=== PATIENT | female | born 1955 | race African-American/Black ===

== ENCOUNTER 2017-07-15 11:25 | Emergency (ER) | payer OTHER ==
[2017-07-15] MEDS: MECLIZINE HCL 12.5 MG TABLET. PO (12:29)
[2017-07-15 12:58] LABS: ADD MAN DIFF? NO
[2017-07-15 13:03] LABS: BASO # 0.1 x10^3/uL (0.0-0.2); BASO % 1 % (0-3); EOS # 0.1 x10^3/uL (0.0-0.7); EOS % 1 % (0-3); HEMATOCRIT 44.1 % (36.0-47.0); HEMOGLOBIN 14.9 g/dL (12.0-15.5); LYMPH # 1.9 x10^3/uL (1.0-4.8); LYMPH % 21 % (24-48); MEAN CORPUSCULAR HEMOGLOBIN 30 pg (25-35); MEAN CORPUSCULAR HGB CONC 34 g/dL (31-37); MEAN CORPUSCULAR VOLUME 87 fL (79-100); MONO # 0.8 x10^3/uL (0.0-1.1); MONO % 9 % (0-9); NEUT # 6.3 x10^3uL (1.8-7.7); NEUT % 69 % (31-73); PLATELET COUNT 284 x10^3/uL (140-400); RED BLOOD COUNT 5.05 x10^6/uL (3.50-5.40); RED CELL DISTRIBUTION WIDTH 15.6 % (11.5-14.5); WHITE BLOOD COUNT 9.2 x10^3/uL (4.0-11.0)
[2017-07-15 13:15] LABS: ANION GAP 10 (6-14); BLOOD UREA NITROGEN 16 mg/dL (7-20); BUN/CREATININE RATIO 18 (6-20); CALCIUM 8.4 mg/dL (8.5-10.1); CARBON DIOXIDE 27 mmol/L (21-32); CHLORIDE 106 mmol/L (98-107); CREATININE 0.9 mg/dL (0.6-1.0); GFR 76.5; GLUCOSE 98 mg/dL (70-99); POTASSIUM 3.6 mmol/L (3.5-5.1); SODIUM 143 mmol/L (136-145)
[2017-07-15 13:21] LABS: ALBUMIN 3.2 g/dL (3.4-5.0); ALBUMIN/GLOBULIN RATIO 0.8 (1.0-1.7); ALK PHOS 91 U/L (46-116); ALT (SGPT) 21 U/L (14-59); AST (SGOT) 16 U/L (15-37); TOTAL BILIRUBIN 0.5 mg/dL (0.2-1.0); TOTAL PROTEIN 7.4 g/dL (6.4-8.2)
[2017-07-15 13:26] LABS: NT-PRO BNP 21 pg/mL (0-124)
[2017-07-15 13:32] LABS: TROPONINI < 0.017 ng/mL (0.000-0.055)
[2017-07-15 13:34] LABS: BILIRUBIN,URINE NEGATIVE (NEG); CLARITY,URINE CLEAR; COLOR,URINE YELLOW; GLUCOSE,URINE NEGATIVE (NEG); NITRITE,URINE NEGATIVE (NEG); PH,URINE 6.5; PROTEIN,URINE NEGATIVE (NEG-TRACE)
[2017-07-15 13:49] LABS: BACTERIA,URINE 0 /HPF (0-FEW); RBC,URINE TNTC /HPF (0-2); SQUAMOUS EPITHELIAL CELL,UR MOD /LPF
== END 2017-07-15 15:28 | disposition home or self-care (01) ==
LOC: ER 11:25
DX: R42 Dizziness and giddiness (principal); J45.909 Unspecified asthma, uncomplicated; K21.9 Gastro-esophageal reflux disease without esophagitis
CPT/HCPCS: 36415; 70450; 71046; 80053; 81001; 83880; 84484; 85025; 93005; 99285-25; J8597

== ENCOUNTER 2018-06-04 19:15 | Emergency (ER) | payer OTHER ==
[~2018-06-04] VITALS: Ht 165.1 cm; Wt 95.3 kg
[~2018-06-04 19:15] MED LIST: ALBU2.5V8 INH; FAMO40TA4 PO; FLUT1BLS3 IH; MECL25TA3 PO; MONT10TA9 PO; OMEP40CA5 PO
--- NOTE | 2018-06-04 19:36 | PHYS DOC ---
Past Medical History Past Medical History: Asthma, Bronchitis, GERD, Hypertension, Pneumonia, Other Additional Past Medical Histor: SLEEP APNEA (ASA COFFMAN APRN) Past Surgical History: Other Additional Past Surgical Histo: partial thyroidectomy(?),D&C (ASA COFFMAN APRN) Alcohol Use: None Drug Use: None (ASA COFFMAN APRN) Adult General Chief Complaint Chief Complaint: Congestion HPI HPI Patient is a 63 year old female with history of asthma, hypertension, his, who presents today complaining of a chronic productive cough that has been going on for years. Patient states she has been following up with her PCP. She states her current PCP is new to her and not giving her prescription strength cough syrup that she used to get from her previous PCP who retired. Patient denies any fever. Denies any shortness of breath. (ASA COFFMAN APRN) Review of Systems Review of Systems Constitutional: Denies fever or chills [] Eyes: Denies change in visual acuity, redness, or eye pain [] HENT: Denies nasal congestion or sore throat [] Respiratory: Reports chronic cough, denies shortness of breath [] Cardiovascular: No additional information not addressed in HPI [] GI: Denies abdominal pain, nausea, vomiting, bloody stools or diarrhea [] : Denies dysuria or hematuria [] Musculoskeletal: Denies back pain or joint pain [] Integument: Denies rash or skin lesions [] Neurologic: Denies headache, focal weakness or sensory changes [] All other systems were reviewed and found to be within normal limits, except as documented in this note. (ASA COFFMAN APRN) Allergies Allergies Allergies Coded Allergies Type Severity Reaction Last Updated Verified No Known Drug Allergies 07/15/17 No (MARK FREIRE MD) Physical Exam Physical Exam Constitutional: Well developed, well nourished, no acute distress, non-toxic appearance. [] HENT: Normocephalic, atraumatic, bilateral external ears normal, oropharynx moist, no oral exudates, nose normal. [] Eyes: PERRLA, EOMI, conjunctiva normal, no discharge. [] Neck: Normal range of motion, no tenderness, supple, no stridor. [] Cardiovascular:Heart rate regular rhythm, no murmur [] Lungs & Thorax: Bilateral breath sounds clear to auscultation [] Abdomen: Bowel sounds normal, soft, no tenderness, no masses, no pulsatile masses. [] Skin: Warm, dry, no erythema, no rash. [] Back: No tenderness, no CVA tenderness. [] Extremities: No tenderness, no cyanosis, no clubbing, ROM intact, no edema. [] Neurologic: Alert and oriented X 3, normal motor function, normal sensory function, no focal deficits noted. [] Psychologic: Affect normal, judgement normal, mood normal. [] (ASA COFFMAN APRN) Current Patient Data Vital Signs Vital Signs Date Time Temp Pulse Resp B/P (MAP) Pulse Ox O2 Delivery O2 Flow Rate FiO2 06/04/18 20:27 98 16 161/74 (103) 99 Room Air 06/04/18 19:17 98.6 98.6 (MARK FREIRE MD) EKG EKG [] (ASA COFFMAN APRN) Radiology/Procedures Radiology/Procedures [] (ASA COFFMAN APRN) Course & Med Decision Making Course & Med Decision Making Pertinent Labs and Imaging studies reviewed. (See chart for details) This is a 63-year-old female patient with history of chronic cough presenting to the ED today with the same. Patient is a nonsmoker. She has history of asthma and bronchitis. Chest x-ray interpreted by radiologist is negative for any acute findings. Patient likely has had chronic bronchitis. She was discharged with albuterol inhaler, prednisone, Tessalon Perles. Informed we do not see any indication for strong prescription cough syrup. Follow-up with her PCP, she states she has an appointment on . (ASA COFFMAN APRN) Course & Med Decision Making Staff Physician Addendum: I was working in the ER during the course of this patient's visit. I was available for consultation as needed, but I was not directly involved in the care of this patient. (MARK FREIRE MD) Dragon Disclaimer Dragon Disclaimer This electronic medical record was generated, in whole or in part, using a voice recognition dictation system. (ASA COFFMAN APRN) Departure Departure Impression: Primary Impression: Acute bronchitis Disposition: 01 HOME, SELF-CARE Condition: STABLE Referrals: UNKNOWN PCP NAME (PCP) Follow-up in 1-2 weeks with your doctor Patient Instructions: Acute Bronchitis, [id number] Additional Instructions: You were evaluated in the emergency room for chronic bronchitis. Take the prescribed medications as ordered. Follow-up with your doctor on as scheduled. Scripts Prednisone (PREDNISONE) 50 Mg Tablet 1 TAB PO DAILY, #5 TAB Prov: ASA COFFMAN APRN 06/04/18 Benzonatate (TESSALON PERLE) 100 Mg Capsule 1 CAP PO TID, #30 CAP Prov: ASA COFFMAN APRN 06/04/18 Albuterol Sulfate (VENTOLIN HFA INHALER) 18 Gm Hfa.aer.ad 2 PUFF INH Q4HRS for FOR ASTHMA, #1 INHALER 0 Refills Prov: ASA COFFMAN APRN 06/04/18 Problem Qualifiers Primary Impression: Acute bronchitis Bronchitis organism: unspecified organism Qualified Codes: J20.9 - Acute bronchitis, unspecified ASA COFFMAN APRN Jun 04, 2018 19:36 MARK FREIRE MD Jun 08, 2018 04:43
[2018-06-04] MEDS ORDERED: VENTOLIN HFA18 GM INH (20:17)
[2018-06-04] MEDS ORDERED: PRED50TA PO (20:17)
[2018-06-04] MEDS ORDERED: BENZ100C PO (20:17)
[2018-06-04 20:27] VITALS: BP 161/74
--- NOTE | 2018-06-04 21:49 | RAD ---
CHEST PA LATERAL History: Productive cough, congestion, shortness of air for 3 days Comparison: July 15, 2017 Findings: 2 views of the chest are submitted. There is no infiltrate, pneumothorax, or effusion. The cardiac silhouette is within normal limits in size. The trachea is in the midline. No acute osseous abnormality is identified. Impression: 1. There is no radiographic evidence of acute cardiopulmonary disease. Electronically signed by: Oscar Cruz MD (06/04/2018 9:46 PM) [facility]
== END 2018-06-04 20:27 | disposition home or self-care (01) ==
LOC: ER 19:15
DX: J20.9 Acute bronchitis, unspecified (principal); K21.9 Gastro-esophageal reflux disease without esophagitis; I10 Essential (primary) hypertension; E89.0 Postprocedural hypothyroidism
CPT/HCPCS: 71046; 99283

== ENCOUNTER 2021-02-24 08:42 | Emergency (ER) | payer MEDICAID, MEDICARE, OTHER ==
[~2021-02-24] VITALS: Ht 165.1 cm; Wt 100.6 kg
[~2021-02-24 08:42] MED LIST changes: +BENZ100C PO; +MECL-75 PO; -MECL25TA3 PO; +MONT10TA49 PO; -MONT10TA9 PO; -OMEP40CA5 PO; +OMEP40CA7 PO; +PRED50TA PO; +VENTOLIN HFA18 GM INH
[2021-02-24] MEDS ORDERED: BENZONATATE 100 MG CAPSULE. PO ONE (09:30)
[2021-02-24] MEDS ORDERED: ASPIRIN 325 MG TABLET PO ONE (09:30)
--- NOTE | 2021-02-24 09:43 | EKG ---
[facility] [address] [place] [address] Test Date: 2021-02-24 Test Time: 09:02:33 Pat Name: RICKEY YIP Department: Room: Gender: F Electronic Pagination System Operator: : [id number] Requested By: LANCE BAEZ Order Number: [id number] Reading MD: Myles Ludwig Measurements Intervals [place] Rate: 81 P: 19 GA: 150 QRS: 1 QRSD: 76 T: 26 QT: 374 QTc: 435 Interpretive Statements SINUS RHYTHM LEFT ATRIAL ABNORMALITY ABNORMAL ECG RI6.01 No previous ECG available for comparison Electronically Signed On 02-24-2021 12:30:05 PRINTER MACHINE by Myles Ludwig
--- NOTE | 2021-02-24 09:56 | RAD ---
Chest radiograph 02/24/2021 9:30 AM INDICATION: Cough, shortness of air COMPARISON: 06/04/2018 TECHNIQUE: Frontal and lateral views of the chest are provided. FINDINGS: The cardiomediastinal silhouette is within normal limits. There are no pleural effusions. There is no pulmonary vascular congestion. There is no pneumothorax. The lungs are clear. No significant osseous abnormality is identified. IMPRESSION: No acute cardiopulmonary process. Electronically signed by: Mouna Tomas MD (02/24/2021 9:54 AM) [id number]
[2021-02-24 10:38] LABS: BASO # 0.1 x10^3/uL (0.0-0.2); BASO % 1 % (0-3); EOS # 0.1 x10^3/uL (0.0-0.7); EOS % 2 % (0-3); HEMATOCRIT 41.6 % (36.0-47.0); HEMOGLOBIN 13.7 g/dL (12.0-15.5); LYMPH # 2.9 x10^3/uL (1.0-4.8); LYMPH % 32 % (24-48); MEAN CORPUSCULAR HEMOGLOBIN 29 pg (25-35); MEAN CORPUSCULAR HGB CONC 33 g/dL (31-37); MEAN CORPUSCULAR VOLUME 88 fL (79-100); MONO # 0.9 x10^3/uL (0.0-1.1); MONO % 10 % (0-9); NEUT # 5.2 x10^3/uL (1.8-7.7); NEUT % 56 % (31-73); PLATELET COUNT 320 x10^3/uL (140-400); RED BLOOD COUNT 4.72 x10^6/uL (3.50-5.40); RED CELL DISTRIBUTION WIDTH 15.5 % (11.5-14.5); WHITE BLOOD COUNT 9.2 x10^3/uL (4.0-11.0)
[2021-02-24 10:48] LABS: CALCIUM 8.1 mg/dL (8.5-10.1); CREATININE 0.7 mg/dL (0.6-1.0); GFR 101.3; POTASSIUM 4.3 mmol/L (3.5-5.1)
[2021-02-24 10:54] LABS: ALBUMIN 3.2 g/dL (3.4-5.0); ALBUMIN/GLOBULIN RATIO 0.9 (1.0-1.7); TOTAL BILIRUBIN 0.4 mg/dL (0.2-1.0); TOTAL PROTEIN 6.6 g/dL (6.4-8.2)
[2021-02-24 10:56] LABS: PROTHROMBIN TIME PATIENT 12.6 SEC (11.7-14.0)
[2021-02-24 11:02] LABS: PARTIAL THROMBOPLASTIN TIME 28 SEC (24-38)
[2021-02-24 11:31] LABS: D-DIMER < 0.27 ug/mlFEU (0.00-0.50)
[2021-02-24 11:53] VITALS: BP 151/68
--- NOTE | 2021-02-24 12:17 | PHYS DOC ---
Past Medical History Past Medical History: Asthma, Bronchitis, GERD, Hypertension, Pneumonia, Other Additional Past Medical Histor: SLEEP APNEA Past Surgical History: , Tubal ligation Additional Past Surgical Histo: THYROID Smoking Status: Never Smoker Alcohol Use: None Drug Use: None Adult General Chief Complaint Chief Complaint: FLU SYMPTOM HPI HPI The patient is a 65-year-old female with a history of hypertension and asthma. She tells me that she has had a chronic nonproductive cough ever since the summertime, for at least 6 months. A few weeks ago her primary doctor tried an empiric course of antibiotics and steroids which she states did not help to resolve her cough. She reports very mild dyspnea with exertion over the past few months, not worsening over the last couple of weeks. Over the past few days she has been having some sharp nonpleuritic nonexertional midsternal chest discomfort, nonradiating, worse with coughing but present whether she is coughing or not. In view of the chest discomfort along with other symptoms, primary doctor encouraged her to come to the emergency department for evaluation. She denies associated fevers, nausea or vomiting, upper respiratory congestion/rhinorrhea worse than usual with her chronic allergies, sore throat, abdominal pain, flank pain, back pain, pain or swelling to her legs. Patient is alert and pleasantly and appropriately interactive and in no acute distress with completely appropriate vital signs upon initial evaluation here in the emergency department. She ambulated in with a narrow, steady gait. Review of Systems Review of Systems Constitutional: Denies fever or chills [] Eyes: Denies change in visual acuity, redness, or eye pain [] HENT: Denies nasal congestion or sore throat [] Respiratory: Denies cough or shortness of breath [] Cardiovascular: No additional information not addressed in HPI [] GI: Denies abdominal pain, nausea, vomiting, bloody stools or diarrhea [] : Denies dysuria or hematuria [] Musculoskeletal: Denies back pain or joint pain [] Integument: Denies rash or skin lesions [] Neurologic: Denies headache, focal weakness or sensory changes [] Endocrine: Denies polyuria or polydipsia [] All other systems were reviewed and found to be within normal limits, except as documented in this note. Current Medications Current Medications Current Medications Medications (Trade) Dose Ordered Sig/Teagan Start Time Stop Time Status Last Admin Dose Admin Aspirin (Morales Aspirin) 325 mg 1X ONCE 02/24/21 09:30 02/24/21 09:31 DC 02/24/21 09:40 325 MG Benzonatate (Tessalon Perle) 100 mg 1X ONCE 02/24/21 09:30 02/24/21 09:31 DC 02/24/21 09:40 100 MG Allergies Allergies Allergies Coded Allergies Type Severity Reaction Last Updated Verified No Known Drug Allergies 02/24/21 No Physical Exam Physical Exam Constitutional: Well developed, well nourished, no acute distress, non-toxic appearance. [] HENT: Normocephalic, atraumatic, bilateral external ears normal, oropharynx moist, no oral exudates, nose normal. [] Eyes: PERRLA, EOMI, conjunctiva normal, no discharge. [] Neck: Normal range of motion, no tenderness, supple, no stridor. [] Cardiovascular:Heart rate regular rhythm, no murmur [] Lungs & Thorax: Bilateral breath sounds clear to auscultation [] Abdomen: Bowel sounds normal, soft, no tenderness, no masses, no pulsatile masses. [] Skin: Warm, dry, no erythema, no rash. [] Back: No tenderness, no CVA tenderness. [] Extremities: No tenderness, no cyanosis, no clubbing, ROM intact, no edema. [] Neurologic: Alert and oriented X 3, normal motor function, normal sensory function, no focal deficits noted. [] Psychologic: Affect normal, judgement normal, mood normal. [] Current Patient Data Vital Signs Vital Signs Date Time Temp Pulse Resp B/P (MAP) Pulse Ox O2 Delivery O2 Flow Rate FiO2 02/24/21 10:53 70 16 108/59 (75) 98 Room Air 02/24/21 08:47 98.6 98.6 Lab Values Laboratory Tests Test 02/24/21 09:44 02/24/21 10:11 SARS-CoV-2 Antigen (Rapid) Negative (NEGATIVE) White Blood Count 9.2 x10^3/uL (4.0-11.0) Red Blood Count 4.72 x10^6/uL (3.50-5.40) Hemoglobin 13.7 g/dL (12.0-15.5) Hematocrit 41.6 % (36.0-47.0) Mean Corpuscular Volume 88 fL (79-100) Mean Corpuscular Hemoglobin 29 pg (25-35) Mean Corpuscular Hemoglobin Concent 33 g/dL (31-37) Red Cell Distribution Width 15.5 % (11.5-14.5) H Platelet Count 320 x10^3/uL (140-400) Neutrophils (%) (Auto) 56 % (31-73) Lymphocytes (%) (Auto) 32 % (24-48) Monocytes (%) (Auto) 10 % (0-9) H Eosinophils (%) (Auto) 2 % (0-3) Basophils (%) (Auto) 1 % (0-3) Neutrophils # (Auto) 5.2 x10^3/uL (1.8-7.7) Lymphocytes # (Auto) 2.9 x10^3/uL (1.0-4.8) Monocytes # (Auto) 0.9 x10^3/uL (0.0-1.1) Eosinophils # (Auto) 0.1 x10^3/uL (0.0-0.7) Basophils # (Auto) 0.1 x10^3/uL (0.0-0.2) Prothrombin Time 12.6 SEC (11.7-14.0) Prothrombin Time INR 0.9 (0.8-1.1) Activated Partial Thromboplast Time 28 SEC (24-38) D-Dimer (Maddie) < 0.27 ug/mlFEU Sodium Level 142 mmol/L (136-145) Potassium Level 4.3 mmol/L (3.5-5.1) Chloride Level 103 mmol/L (98-107) Carbon Dioxide Level 30 mmol/L (21-32) Anion Gap 9 (6-14) Blood Urea Nitrogen 12 mg/dL (7-20) Creatinine 0.7 mg/dL (0.6-1.0) Estimated GFR (Cockcroft-Gault) 101.3 BUN/Creatinine Ratio 17 (6-20) Glucose Level 85 mg/dL (70-99) Calcium Level 8.1 mg/dL (8.5-10.1) L Total Bilirubin 0.4 mg/dL (0.2-1.0) Aspartate Amino Transferase (AST) 17 U/L (15-37) Alanine Aminotransferase (ALT) 29 U/L (14-59) Alkaline Phosphatase 123 U/L (46-116) H Troponin I High Sensitivity 30 ng/L (4-50) ID-Zyu-K-Type Natriuretic Peptide 21 pg/mL (0-124) Total Protein 6.6 g/dL (6.4-8.2) Albumin 3.2 g/dL (3.4-5.0) L Albumin/Globulin Ratio 0.9 (1.0-1.7) L Laboratory Tests 02/24/21 10:11 Laboratory Tests 02/24/21 10:11 EKG EKG Sinus rhythm, rate 81, no acute ST elevation or depression, MO 150, QRS 76, QTc 435, EP interpretation. Nonischemic tracing, intervals appropriate. Radiology/Procedures Radiology/Procedures Chest radiograph 02/24/2021 9:30 AM INDICATION: Cough, shortness of air COMPARISON: 06/04/2018 TECHNIQUE: Frontal and lateral views of the chest are provided. FINDINGS: The cardiomediastinal silhouette is within normal limits. There are no pleural effusions. There is no pulmonary vascular congestion. There is no pneumothorax. The lungs are clear. No significant osseous abnormality is identified. IMPRESSION: No acute cardiopulmonary process. Electronically signed by: Mouna Tomas MD (02/24/2021 9:54 AM) [id number] Course & Med Decision Making Course & Med Decision Making Labs and imaging nonacute. Covid test negative. Wells low risk for DVT/PE and D-dimer negative. HEART score 3, low risk for MACE, and chest discomfort is very atypical. No evidence of an emergency condition is identified. Patient is resting very comfortably in no acute distress on serial reassessments. Will discharge home to follow-up very closely with primary care in the next couple of days. She has a pulmonary medicine appointment coming up in March which I believe is an excellent next step for further evaluation of her chronic cough. She understands that if she feels worse instead of better or develops other new symptoms of concern that she will need to return to the emergency department immediately for reevaluation. All questions were answered Dragon Disclaimer Dragon Disclaimer This electronic medical record was generated, in whole or in part, using a voice recognition dictation system. Departure Departure Impression: Primary Impression: Chronic cough Additional Impression: Other chest pain Disposition: HOME / SELF CARE / HOMELESS Condition: GOOD Referrals: BALDOMERO JALLOH MD (PCP) Patient Instructions: Chest Pain (Nonspecific), Cough, Adult Additional Instructions: Follow-up very closely with your primary care doctor in the office in the next 1 to 2 days for a reevaluation of your symptoms and to discussion of next best steps in care. Follow-up with the pulmonary medicine doctor as scheduled within the next few weeks. Return to the emergency department right away for worsening symptoms of any kind or with any other new symptoms of concern Problem Qualifiers LANCE BAEZ MD Feb 24, 2021 12:16
--- NOTE | 2021-02-25 18:29 | NUR ---
IP: Informed pt of negative covid test. Pt verbalized understanding.
== END 2021-02-24 12:24 | disposition home or self-care (01) ==
LOC: ER 08:42
DX: R05.3 Chronic cough (principal); R07.89 Other chest pain; J45.909 Unspecified asthma, uncomplicated; I10 Essential (primary) hypertension; K21.9 Gastro-esophageal reflux disease without esophagitis; Z20.822 Contact with and (suspected) exposure to COVID-19; Z98.51 Tubal ligation status
CPT/HCPCS: 36415; 71046; 80053; 83880; 84484; 85025; 85379; 85610; 85730; 87426; 93005; 99284; U0003; U0005